=== PATIENT | female | born 1965 | race Caucasian/White ===

== ENCOUNTER → 2018-07-15 | Outpatient (CLI) | payer BC ==
--- NOTE | 2018-07-18 10:52 | MM ---
Reason for exam: screening (asymptomatic). Last mammogram was performed 2 years and 7 months ago. History: Patient is postmenopausal. Family history of breast cancer in paternal grandmother. Took hormonal contraceptives for 3 years beginning at age 19. Physical Findings: A clinical breast exam by your physician is recommended on an annual basis and results should be correlated with mammographic findings. MG Screening Mammo w CAD Bilateral CC and MLO view(s) were taken. Prior study comparison: December 17, 2015, bilateral MG screening mammo w CAD. March 27, 2014, bilateral MG diagnostic mammo w CAD [facility]. There are scattered fibroglandular densities. No significant changes when compared with prior studies. ASSESSMENT: Benign, BI-RAD 2 RECOMMENDATION: Routine screening mammogram of both breasts in 1 year.
== END | disposition home or self-care (01) ==
LOC: RADMAMWWP 09:34
PROVIDERS: ATTEND Obstetrics & Gynecology
DX: Z12.31 Encounter for screening mammogram for malignant neoplasm of breast (principal)
CPT/HCPCS: 77067

== ENCOUNTER → 2018-12-29 | Outpatient (CLI) | payer BC ==
--- NOTE | 2018-12-29 20:51 | XR ---
EXAMINATION TYPE: XR hand complete RT DATE OF EXAM: 12/29/2018 COMPARISON: NONE HISTORY: Pain and swelling TECHNIQUE: 3 views FINDINGS: Metacarpals are intact. There is a 3 mm chip fracture of the lateral aspect of the head of the middle phalanx of the middle finger. There is no dislocation. Joint spaces are fairly normal. Car pal bones are intact. IMPRESSION: Small chip fracture of the middle finger.
== END | disposition home or self-care (01) ==
LOC: RADXRMAIN 20:13
PROVIDERS: ATTEND Psychiatry & Neurology Neurology
DX: S62.622A Displaced fracture of middle phalanx of right middle finger, initial encounter for closed fracture (principal)